=== PATIENT | female | born 1945 | race Caucasian/White ===

== ENCOUNTER → 2016-11-13 16:53 | Outpatient (CLI) | payer MEDICARE, BC ==
[2012-07-05 07:43] VITALS: BMI 30.4
== END | disposition home or self-care (01) ==
LOC: D.MAMMO 15:15
DX: Z12.31 Encounter for screening mammogram for malignant neoplasm of breast (principal)

== ENCOUNTER → 2017-11-15 13:15 | Outpatient (CLI) | payer MEDICARE, BC ==
[2012-07-05 07:43] VITALS: BMI 30.4
== END | disposition home or self-care (01) ==
LOC: D.MAMMO 13:15
DX: Z12.31 Encounter for screening mammogram for malignant neoplasm of breast (principal)

== ENCOUNTER 2018-12-06 12:40 | Emergency (ER) | payer MEDICARE ==
[~2018-12-06] VITALS: Ht 172.7 cm; Wt 83.6 kg
[2018-12-06 12:45] VITALS: Ht 172.7 cm; Wt 83.6 kg
[2018-12-06] MEDS ORDERED: MIRAPEX0.5 MG PO (12:48)
[2018-12-06] MEDS ORDERED: TRAZODONE HCL150 MG PO (12:49)
[2018-12-06] MEDS ORDERED: FOLIC ACID1 MG PO (12:49)
[2018-12-06] MEDS ORDERED: LEVOXYL100 MCG PO (12:49)
[2018-12-06] MEDS ORDERED: ZOLOFT100 MG PO (12:49)
[2018-12-06] MEDS ORDERED: ALENDRONATE SOD40 MG PO (12:51)
[2018-12-06] MEDS ORDERED: MOBIC7.5 MG PO (12:51)
[2018-12-06] MEDS ORDERED: ORAP1 MG PO (12:52)
[2018-12-06 13:19] LABS: APPEARANCE CLOUDY (CLEAR); BILIRUBIN NEGATIVE (NEGATIVE); COLOR YELLOW (YELLOW); GLUCOSE NEGATIVE (NEGATIVE); KETONE NEGATIVE (NEGATIVE); NITRITE NEGATIVE (NEGATIVE); PROTEIN 1+ mg/dL (NEGATIVE); SPECIFIC GRAVITY 1.005 (1.005-1.020); UROBILINOGEN NORMAL (NORMAL)
[2018-12-06 13:20] LABS: BACTERIA MANY /hpf (NONE SEEN); EPITHELIAL CELLS 0-5 /hpf (0-5); RED CELLS - URINE 0-5 /hpf (0-5)
[2018-12-06] MEDS ORDERED: SULFAMETHOXAZOL1 TA3 PO (14:36)
[2018-12-06] MEDS ORDERED: HYDROCODON-ACE1 EAC7 PO (14:36)
[2018-12-06 14:57] VITALS: BP 128/88
== END 2018-12-06 14:58 | disposition home or self-care (01) ==
LOC: D.ER 12:40
PROVIDERS: Family Medicine
DX: N39.0 Urinary tract infection, site not specified (principal); S82.001A Unspecified fracture of right patella, initial encounter for closed fracture; X58.XXXA Exposure to other specified factors, initial encounter; Y93.89 Activity, other specified; Y92.019 Unspecified place in single-family (private) house as the place of occurrence of the external cause

== ENCOUNTER → 2019-07-21 14:21 | Outpatient (CLI) | payer MEDICARE ==
[2018-12-06 12:45] VITALS: BMI 28.0
[~2019-07-21 14:21] MED LIST: ALENDRONATE SOD40 MG PO; FOLIC ACID1 MG PO; HYDROCODON-ACE1 EAC7 PO; LEVOXYL100 MCG PO; MIRAPEX0.5 MG PO; MOBIC7.5 MG PO; ORAP1 MG PO; SULFAMETHOXAZOL1 TA3 PO; TRAZODONE HCL150 MG PO; ZOLOFT100 MG PO
[2019-07-21 14:50] LABS: BASOPHILS 0.3 % (0-2); EOSINOPHILS 1.5 % (0-7); HEMATOCRIT 38.1 % (36.0-48.0); HEMOGLOBIN 12.5 g/dL (12-16); IMMATURE GRANULOCYTES 0.1 % (0-5); LYMPHOCYTES 11.8 % (15-50); MCH 31.3 pg (26.0-34.0); MCHC 32.8 g/dL (31.0-37.0); MCV 95.3 fL (80.0-100.0); MEAN PLATELET VOLUME 8.9 fL (7.4-10.4); MONOCYTES 5.8 % (2-11); NEUTROPHILS 80.5 % (40-80); PLATELET COUNT 257 10x3/uL (130-400); RDW 13.2 % (11.5-14.5); WBC 6.9 10x3/uL (4.8-10.8)
[2019-07-21 15:54] LABS: ERYTHROCYTE SEDIMENTATION RATE 10 mm/hr (0-30)
== END | disposition home or self-care (01) ==
LOC: D.LAB 14:21
PROVIDERS: ATTEND Orthopaedic Surgery
DX: M25.561 Pain in right knee (principal)

== ENCOUNTER → 2019-08-18 10:06 | Outpatient (CLI) | payer MEDICARE ==
[2018-12-06 12:45] VITALS: BMI 28.0
== END | disposition home or self-care (01) ==
LOC: D.NM 07-30 10:15
PROVIDERS: ATTEND Orthopaedic Surgery
DX: M25.561 Pain in right knee (principal)

== ENCOUNTER → 2019-09-07 14:32 | Outpatient (CLI) | payer MEDICARE ==
[2018-12-06 12:45] VITALS: BMI 28.0
== END | disposition home or self-care (01) ==
LOC: D.RAD 14:32
PROVIDERS: ATTEND Orthopaedic Surgery
DX: R07.9 Chest pain, unspecified (principal)